=== PATIENT | female | born 1945 | race Caucasian/White ===

== ENCOUNTER 2024-04-21 11:57 | Day surgery (SDC) | payer MEDICARE ==
[2024-04-19 13:10] VITALS: BMI 36.6
[2024-04-21] MEDS: LACTATED RINGERS 1,000 ML IV SCH (12:50)
[2024-04-21] MEDS: IV FLUID CONTINUATION 1,000 ML IV ONE (12:50)
[2024-04-21] MEDS: LIDOCAINE 2% INJ 20 MG/ML SQ ONE ×2 (12:53→13:18)
[2024-04-21 12:56] VITALS: TEMP 97.6
[2024-04-21 12:59] LABS: Glucose,Whole Blood 129 mg/dL (70-110)
[2024-04-21] MEDS ORDERED: LIDOCAINE 1% INJ 10MG/ML (20 ML MDV) ONE (13:04)
[2024-04-21] MEDS ORDERED: PROPOFOL 10 MG/ML 20 ML VIAL IV ONE (13:04)
[2024-04-21 14:21] VITALS: BP 119/70; PULSE 76; RESP 18
[2024-04-21 14:36] LABS: Anisocytosis Slight; HCT 36.7 % (34.0-46.0); HGB 11.8 gm/dL (11.4-16.0); Hypochromasia Slight; MCH 32.6 pg (25.0-35.0); MCHC 32.1 g/dL (31.0-37.0); MCV 101.5 fL (80.0-100.0); Macrocytosis Slight; Mean Platelet Volume 7.9; Platelet Count 108 k/uL (150-450); RBC 3.62 m/uL (3.80-5.40); RDW 16.9 % (11.5-15.5); Reticulocyte % 1.4 % (0.5-2.0); WBC 3.5 k/uL (3.8-10.6)
[2024-04-21 15:14] LABS: Band Neutrophils % 1 %; Basophils # (M) 0.04 k/uL (0-0.2); Eosinophils # (M) 0.07 k/uL (0-0.7); Lymphocytes # (M) 2.03 k/uL (1.0-4.8); Monocytes # (M) 0.42 k/uL (0-1.0); Neutrophils % (M) 27 %; Nucleated Red Blood Cells 0 /100 WBC (0-0); Total Cells Counted 200
--- NOTE | 2024-04-22 00:25 | OP ---
OPERATIVE REPORT DATE OF SERVICE : PREOPERATIVE DIAGNOSIS: Thrombocytopenia. POSTOPERATIVE DIAGNOSIS: Thrombocytopenia. OPERATION: Bone marrow biopsy with general and local sedation. DESCRIPTION OF PROCEDURE: Following administration of general anesthesia, was placed in the left lateral decubitus position with the right iliac crest palpated. This area was marked with a skin marker and sterilized with 3 swabs of Betadine, and 3 swabs of alcohol followed by placement of a sterile drape. 10 mL of lidocaine was applied to the periosteum. A 0.3 cm incision was then made into the skin and subcutaneous tissue followed by advancement of a 4-inch Jamshidi needle. Three initial passes were made with limited aspirate sample obtained. One 0.5 cm core sample was obtained. Additional pass into the bone marrow obtained. Approximately 20 mL of aspirate and additional 0.3 cm of core bone marrow was obtained. She tolerated the procedure well with less than 1 mL of blood loss. She returned to the postoperative area in stable condition. Aspirate and core samples obtained will be sent for morphology, flow cytometry, FISH, cytogenetics, and NGS. We will follow up on the results in clinic. MMODL / IJN: [id number] /
== END 2024-04-21 15:01 | disposition home or self-care (01) ==
LOC: OR 11:57
PROVIDERS: ATTEND Internal Medicine
DX: D69.6 Thrombocytopenia, unspecified (principal)
CPT/HCPCS: 38222; 85025; 85045